=== PATIENT | female | born 1950 | race Caucasian/White ===

== ENCOUNTER 2017-05-05 06:41 | Day surgery (SDC) | payer MEDICARE ==
[~2017-05-05] VITALS: Ht 157.5 cm; Wt 65.8 kg
[2017-05-05] MEDS ORDERED: SODIUM CHLORIDE 0.9% 1000ML 1,000 ML IV ONE (06:50)
[2017-05-05 07:23] VITALS: BP 119/75
[2017-05-05] MEDS ORDERED: DULO20 PO (07:51)
[2017-05-05] MEDS ORDERED: ROSU5TAB18 PO (07:51)
[2017-05-05] MEDS ORDERED: CLONIPINE PO (07:51)
[2017-05-05] MEDS ORDERED: [UNRECOGNIZED DRUG - OTHER] PO (07:51)
[2017-05-05] MEDS ORDERED: PROPOFOL 10 MG/ML 20ML VIAL IV ONE ×2 (08:08)
== END 2017-05-05 09:15 | disposition home or self-care (01) ==
LOC: ENDO 06:41 → DAH 06:41 → ENDO 09:15
PROVIDERS: ATTEND Internal Medicine Gastroenterology
DX: K62.1 Rectal polyp (principal); D12.0 Benign neoplasm of cecum; D12.2 Benign neoplasm of ascending colon; D12.5 Benign neoplasm of sigmoid colon; D12.3 Benign neoplasm of transverse colon; Z80.3 Family history of malignant neoplasm of breast; Z83.71 Family history of colonic polyps; Z88.2 Allergy status to sulfonamides
CPT/HCPCS: 45380; 45385; 88305; A4606; J2704 ×2; J7030